=== PATIENT | female | born 1945 | race Caucasian/White ===

== ENCOUNTER → 2016-12-03 | Outpatient (CLI) | payer MEDICARE, OTHER ==
[~2016-12-03] MED LIST: CITRACAL PLUS1 TAB PO; COLACE 100100 MG/CAP PO; COZAAR 50MG50 MG/TAB PO; FLAGYL500 MG PO; HCTZ 25MG TAB25 MG PO; LEVAQUIN 750MG750 M1 PO; LEVSIN 0.10.125 MG/T PO; METAMUCIL3.4 GM/DOS PO; MIRALAX PA17 GM/Dose PO; MUCUS RELIEF400 M1 PO; MULTI VITAMINS1 TAB PO; NORCO 325 MG-7.1 TAB PO; PREVACID 30MG30 M1 PO; SINGULAIR 110 MG/TAB PO; TOPROL XL 50MG50 MG PO; ULTRAM 50MG TAB50 MG PO; VENTOLIN0.09 MG IH; ZOCOR 40MG40 MG PO; ZOLOFT 100MG100 MG PO; ZOSYN 3 GM-0.371 PD1 IV; ZYRTEC 10MG10 MG PO
== END ==
LOC: MC.RAD 10:59
DX: Z12.31 Encounter for screening mammogram for malignant neoplasm of breast (principal)

== ENCOUNTER 2017-09-23 12:45 | Outpatient (RCR) | payer MEDICARE, OTHER | END 2017-11-11 15:39 | disposition home or self-care (01) | LOC: WSPT 12:45 | DX: M75.81 Other shoulder lesions, right shoulder (principal) | CPT/HCPCS: G0283-GP; G8987-GP; G8988-GP; G8989-GP ==

== ENCOUNTER → 2018-04-07 | Outpatient (CLI) | payer MEDICARE, OTHER | LOC: MC.RAD 13:39 | DX: Z12.31 Encounter for screening mammogram for malignant neoplasm of breast (principal) ==

== ENCOUNTER → 2019-01-26 | Outpatient (CLI) | payer MEDICARE, OTHER | LOC: COL.RAD 10:29 | DX: M48.062 Spinal stenosis, lumbar region with neurogenic claudication (principal); M51.26 Other intervertebral disc displacement, lumbar region ==

== ENCOUNTER → 2019-02-12 | Outpatient (CLI) | payer MEDICARE, OTHER ==
[~2019-02-12] VITALS: Ht 167.6 cm; Wt 84.6 kg
[~2019-02-12] MED LIST changes: +00186-0370-20 IH; +CITRACAL + D CA1 TAB PO; -CITRACAL PLUS1 TAB PO; +LIPITOR20 MG PO; +LOPRESSOR 550 MG/TAB PO; +PRILOSEC 20MG20 MG PO; +THEO-24400 MG PO
[2019-02-12 07:45] VITALS: BP 162/91; PULSE 74
[2019-02-12 08:22] VITALS: BP 146/94; PULSE 64
--- NOTE | 2019-02-12 08:45 | NUR ---
Pt out to car per wheelchair, denies complaints at this time. Pt up and into car without difficulty.
== END ==
LOC: COL.RAD 07:00
DX: M48.062 Spinal stenosis, lumbar region with neurogenic claudication (principal); M54.16 Radiculopathy, lumbar region
CPT/HCPCS: J3301

== ENCOUNTER → 2019-03-01 | Outpatient (CLI) | payer MEDICARE, OTHER ==
[~2019-03-01] VITALS: Ht 167.6 cm; Wt 86.2 kg
[~2019-03-01] MED LIST changes: +TYLENOL 500MG500 MG PO; +XYZAL5 MG PO
[2019-03-01 07:04] VITALS: BP 139/72; PULSE 70
[2019-03-01 07:45] VITALS: BP 149/76; PULSE 60
[2019-03-01 07:49] VITALS: BP 149/76; PULSE 60
--- NOTE | 2019-03-01 08:05 | NUR ---
PT WAS TAKEN DOWN TO POV WHERE SHE GOT INTO THE PASSENGER SIDE. PAIN IS 3/10. DR WENT OVER THE DC INSTRUCTIONS WITH PT AND NURSE WENT OVER DC INSTRUCUCTIONS WITH PT AND ALL AROUND PATTERNMAKER.
== END ==
LOC: COL.RAD 06:48
DX: M48.062 Spinal stenosis, lumbar region with neurogenic claudication (principal)
CPT/HCPCS: J3301

== ENCOUNTER → 2019-07-20 | Outpatient (CLI) | payer MEDICARE, OTHER | LOC: MC.RAD 14:23 | DX: Z12.31 Encounter for screening mammogram for malignant neoplasm of breast (principal) ==

== ENCOUNTER 2019-08-14 21:43 | Emergency (ER) | payer MEDICARE, OTHER ==
[~2019-08-14] VITALS: Ht 167.6 cm; Wt 85.9 kg
[2019-08-14 22:06] VITALS: BP 181/91; TEMP 98.3
[2019-08-15 01:03] LABS: BASO # 0.1 (0.0-0.2); BASO % 0.4 % (0.0-2.0); EOS # 0.1 (0.0-0.7); EOS % 1.1 % (0-4.0); GRAN # 8.4 (1.4-6.5); GRAN % 70.9 % (42.2-75.2); HEMATOCRIT 38.8 % (37.0-47.0); HEMOGLOBIN 12.6 g/dl (12.5-16.0); LYMPH % 16.5 % (20.0-51.0); MEAN CELL VOLUME 90 fl (80.0-100.0); MEAN CORPUSCULAR HEMOGLOBIN 29 pg (27.0-31.0); MEAN CORPUSCULAR HGB CONC 33 g/dl (33.0-37.0); MEAN PLATELET VOLUME 8.9 fl (7.4-10.4); MONO # 1.3 (0.1-0.6); MONO % 10.6 % (1.7-9.3); PLATELET COUNT 254 K/mm3 (130-400); RED BLOOD COUNT 4.31 M/mm3 (4.10-5.30); REDCELL DISTRIBUTION WIDTH-CV 13.4 % (11.5-14.5)
[2019-08-15 01:13] LABS: ALANINE AMINOTRANSFERASE 18 U/L (9-52); ALBUMIN 4.4 gm/dL (3.5-5.0); ALKALINE PHOSPHATASE 84 U/L (50-136); ANION GAP 15 mmol/L (7-16); AST,SGOT 25 U/L (15-37); BILIRUBIN,TOTAL 0.2 mg/dL (0.0-1.0); BLOOD UREA NITROGEN 11 mg/dL (7-17); CALCIUM 10.1 mg/dL (8.4-10.2); CARBON DIOXIDE 27 mmol/L (22-30); CHLORIDE 97 mmol/L (98-107); CREATININE, serum 0.69 (0.52-1.25); GLUCOSE 113 mg/dL (74-106); POTASSIUM 3.5 mmol/L (3.4-5.0); SODIUM 139 mmol/L (137-145); TOTAL PROTEIN 7.5 gm/dL (6.4-8.2)
[2019-08-15 01:24] LABS: ERYTHROCYTE SEDIMENTATION RATE 38 mm/hr (0-30)
[2019-08-15 01:25] LABS: TROPONIN-I < 0.012 ng/mL (0.000-0.035)
[2019-08-15 01:56] VITALS: PULSE 81
== END 2019-08-15 01:56 | disposition home or self-care (01) ==
LOC: COL.ER 21:43
PROVIDERS: Emergency Medicine
DX: R51 Headache (principal); R07.89 Other chest pain; I10 Essential (primary) hypertension; J45.909 Unspecified asthma, uncomplicated; E78.5 Hyperlipidemia, unspecified; K21.9 Gastro-esophageal reflux disease without esophagitis; M54.9 Dorsalgia, unspecified; G89.29 Other chronic pain; Z79.891 Long term (current) use of opiate analgesic

== ENCOUNTER 2020-04-12 00:58 | Inpatient (IN) | payer MEDICARE, OTHER ==
[~2020-04-12] VITALS: Ht 167.6 cm; Wt 84.2 kg
[2020-04-12 02:00] LABS: BASO % 0.3 % (0.0-2.0); EOS # 0.1 (0.0-0.7); EOS % 0.4 % (0-4.0); GRAN % 74.3 % (42.2-75.2); HEMATOCRIT 38.1 % (37.0-47.0); HEMOGLOBIN 12.6 g/dl (12.5-16.0); LYMPH # 1.6 (1.2-3.4); LYMPH % 12.9 % (20.0-51.0); MEAN CELL VOLUME 88 fl (80.0-100.0); MEAN CORPUSCULAR HEMOGLOBIN 29 pg (27.0-31.0); MEAN CORPUSCULAR HGB CONC 33 g/dl (33.0-37.0); MEAN PLATELET VOLUME 9.2 fl (7.4-10.4); MONO # 1.4 (0.1-0.6); MONO % 11.6 % (1.7-9.3); PLATELET COUNT 248 K/mm3 (130-400); RED BLOOD COUNT 4.35 M/mm3 (4.10-5.30); REDCELL DISTRIBUTION WIDTH-CV 13.9 % (11.5-14.5)
[2020-04-12 02:08] LABS: PROTHROMBIN TIME 10.7 SECONDS (9.7-12.8)
[2020-04-12 02:10] LABS: PARTIAL THROMBOPLASTIN TIME 32.3 SECONDS (26.0-37.0)
[2020-04-12 02:11] LABS: ALBUMIN 4.4 gm/dL (3.5-5.0); BILIRUBIN,TOTAL 0.7 mg/dL (0.0-1.0); CALCIUM 9.8 mg/dL (8.4-10.2); CREATININE, serum 0.68 (0.52-1.25); MAGNESIUM 1.9 mg/dL (1.6-2.3); POTASSIUM 3.5 mmol/L (3.4-5.0); TOTAL PROTEIN 7.8 gm/dL (6.4-8.2)
[2020-04-12 02:28] LABS: TROPONIN-I 0.036 ng/mL (0.000-0.035)
[2020-04-12 02:40] LABS: TSH w REFLEX 2.03 uIU/mL (0.465-4.680)
[2020-04-12 03:39] LABS: THEOPHYLLINE 8.5 ug/mL (10.0-20.0)
[2020-04-12 06:17] VITALS: BP 122/60; PULSE 86; TEMP 97.5
[2020-04-12] MEDS ORDERED: TIAZAC180 MG PO (06:28)
[2020-04-12] MEDS ORDERED: ATROVENT I0.2 MG/1 M IH (06:37)
[2020-04-12 07:49] VITALS: BP 124/62; PULSE 81; TEMP 97.8
[2020-04-12 11:10] VITALS: BP 144/72; PULSE 80; TEMP 98
--- NOTE | 2020-04-12 11:50 | NUR ---
Received report at shift change, patient was resting in bed. Verbalized she was hungry, diet order has been placed and she has been provided with ice water. She states her symptoms have resolved. Was concerned about receiving her inhalers for her asthma. Did clarifiy with Dr. Torrez that patient can resume all home medications, this was relayed to hospitalists.
--- NOTE | 2020-04-12 13:31 | NUR ---
SW met with patient about DC. Plan is to return home in [facility] with DTR Rosalinda Mary Lou . Patient reports that use of [facility] and pcp as Dr. Light. Patient indicated that her DTR will transport. RX obtained for Rubi Gamble. Denies having any concerns, no dpoa, and educated on services. Will continue to follow for additonal care needs.
[2020-04-12 17:42] VITALS: BP 159/74; PULSE 97; TEMP 97.9
--- NOTE | 2020-04-12 18:55 | NUR ---
Patient is awake and alert eating supper, did have discussion regarding heart cath on Tuesday. Did notify of changed and improved troponin and was pleased. Call light and personal items are within reach.
[2020-04-12 20:54] VITALS: BP 146/76; PULSE 79; TEMP 98.1
[2020-04-13] VITALS (8 sets, daily range): BP systolic 129–160; BP diastolic 63–78; PULSE 68–103; TEMP 97.6–99.1
--- NOTE | 2020-04-13 06:06 | NUR ---
PATIENT SLEPT THROUGH THE NIGHT. X1 DOSE OF TYLENOL WAS GIVEN WITH HS PILLS FOR A HEADACHE. PATIENT STILL HAD A HEADACHE THIS MORNING SO X1 DOSE OF TRAMADOL WAS GIVEN. PATIENT IS IND IN HER ROOM AND GETS AROUND. PATIENT IS SCHEDULED FOR A HEART CATH ON TUESDAY. WILL CONTINUE TO MONITOR HER. WILL REPORT OFF TO DAY SHIFT
[2020-04-13 07:03] LABS: BASO % 0.5 % (0.0-2.0); EOS # 0.1 (0.0-0.7); EOS % 1.6 % (0-4.0); GRAN # 3.3 (1.4-6.5); GRAN % 58.4 % (42.2-75.2); HEMATOCRIT 37.5 % (37.0-47.0); HEMOGLOBIN 12.2 g/dl (12.5-16.0); LYMPH # 1.5 (1.2-3.4); LYMPH % 26.4 % (20.0-51.0); MEAN CELL VOLUME 90 fl (80.0-100.0); MEAN CORPUSCULAR HEMOGLOBIN 29 pg (27.0-31.0); MEAN CORPUSCULAR HGB CONC 33 g/dl (33.0-37.0); MEAN PLATELET VOLUME 9.3 fl (7.4-10.4); MONO # 0.7 (0.1-0.6); MONO % 12.9 % (1.7-9.3); PLATELET COUNT 255 K/mm3 (130-400); RED BLOOD COUNT 4.17 M/mm3 (4.10-5.30); REDCELL DISTRIBUTION WIDTH-CV 14.1 % (11.5-14.5)
[2020-04-13 07:29] LABS: CALCIUM 9.2 mg/dL (8.4-10.2); CHOLESTEROL RISK RATIO 5.3; CREATININE, serum 0.61 (0.52-1.25); MAGNESIUM 2.3 mg/dL (1.6-2.3); POTASSIUM 4.1 mmol/L (3.4-5.0)
[2020-04-13 07:42] LABS: TROPONIN-I 0.085 ng/mL (0.000-0.035)
[2020-04-13 14:49] LABS: HEMATOCRIT 40.2 % (37.0-47.0); HEMOGLOBIN 13.1 g/dl (12.5-16.0); MEAN CELL VOLUME 90 fl (80.0-100.0); MEAN CORPUSCULAR HEMOGLOBIN 29 pg (27.0-31.0); MEAN CORPUSCULAR HGB CONC 33 g/dl (33.0-37.0); MEAN PLATELET VOLUME 9.1 fl (7.4-10.4); PLATELET COUNT 277 K/mm3 (130-400); RED BLOOD COUNT 4.46 M/mm3 (4.10-5.30); REDCELL DISTRIBUTION WIDTH-CV 14.2 % (11.5-14.5)
[2020-04-13 15:02] LABS: CALCIUM 9.4 mg/dL (8.4-10.2); CREATININE, serum 0.73 (0.52-1.25); POTASSIUM 3.7 mmol/L (3.4-5.0)
[2020-04-13 15:06] LABS: INR 1.1 (0.8-3.0); PROTHROMBIN TIME 11.8 SECONDS (9.7-12.8)
[2020-04-13 15:08] LABS: PARTIAL THROMBOPLASTIN TIME 45.7 SECONDS (26.0-37.0)
--- NOTE | 2020-04-13 18:50 | NUR ---
Pt REPORT RECEIVED FROM CASH RN AT BEDSIDE. CALL LIGHT IS WITHIN REACH. WILL CONTINUE TO MONITOR.
--- NOTE | 2020-04-13 19:39 | NUR ---
PT HAS REPEATEDLY STATED "I WILL NOT HAVE THE CARDIAC CATH IF DR. ESPINO DOES NOT PERFORM IT!" WE HAVE DELAYED CONSENT UNTIL WE KNOW THAT DR. ESPINO WILL BE THE ONE PERFORMING THE CATH. SHE ALSO STATED THAT IF DR. ESPINO CANNOT DO IT, SHE WOULD LIKE TO LEAVE AND GO TO [place]. PT HAS HAD A GENERALLY UNEVENTFUL DAY, AND HAS BEEN PLEASANT. REPORT GIVEN TO SUSI FROST.
[2020-04-14] VITALS (241 sets, daily range): BP systolic 106–173; BP diastolic 63–100; PULSE 66–105; TEMP 97.8–98.4; O2SAT 92–100
--- NOTE | 2020-04-14 02:00 | NUR ---
Pt has had a quiet evening and has spent her time resting in bed at times watching tv. Pt educated about her NPO status and heart cath scheduled in the AM and Pt reports that she is not having her heart cath performed by anyone other than Dr Mckeon and if she needs to she will transfer to [place] for her procedure. This typewriter operator automatic explains that we will not know if Dr mckeon is going to perform the proceudre until the morning but if she chooses to not have the procedure done and wants to transfer to a hospital in [place] to have it done that is her right. Pt asks if she would need to go by ambulance and if her isnurance would pay for that. This typewriter operator automatic replies that Pt will need to talk to rn social services and/or the Dr in the morning for that answer. Pt states understanding of education. Pt has been compliant with medication regimen and cooperative with care. When Pt was attempting to fall asleep she had c/o headache and requested her PRN APAP and Ultram which were effective. Call light is within reach and at this time Pt is resting in bed with eyes closed and no s/s of distress noted. Will continue to monitor.
--- NOTE | 2020-04-14 02:27 | NUR ---
Pt uses call light to report that she is feeling like she is having pain located at her back, neck, and shoulders and upon assessing Pt she also points to her left lateral ribs. This news writer contacts Tele-RN who states that Pt is is normal sinus rhythym with no adverse changes or concerns at this time and the only issue showing up on telemetry is the bundle branch block that is a pre-existing condition and is aware of. VS assessed and charted under VS tab with no concerns noted. Will continue to monitor.
--- NOTE | 2020-04-14 06:27 | NUR ---
Pt resting in bed with eyes open and waiting to find out if Dr Mckeon is going to be available for her heart cath. Call light within reach and no s/s of distress noted. Will provide bedsdie report to dayshift nurse.
--- NOTE | 2020-04-14 07:16 | NUR ---
Pt continues to state that she is not going to have the heart catheterization if Dr. Morales does not perform the procedure. Pt is in bed an anxious regarding which doctor is here to do heart cath procedures. This RN assured her that she does not have to have to consent to any procedure done by any other physician and that her current consent that is signed is specific to Dr. Morales. Pt seemed to be content with that answer and relaxed quite a bit.
[2020-04-14 07:28] LABS: CALCIUM 9.5 mg/dL (8.4-10.2); CREATININE, serum 0.69 (0.52-1.25); POTASSIUM 3.8 mmol/L (3.4-5.0)
[2020-04-14] MEDS ORDERED: ZITHROMAX 250M250 MG PO (08:33)
--- NOTE | 2020-04-14 12:13 | NUR ---
First visit from the unarmed security officer. No needs right now.
--- NOTE | 2020-04-14 16:12 | NUR ---
SEE MERGE FOR ALL MEDICATION ADMIN TIMES AND INTRA AND POST SEDATION ASSESSMENT
--- NOTE | 2020-04-14 18:40 | NUR ---
[employer] CALLED TO REPORT ON PT. PT BECAME HYPOTENSIVE AND BRADYCARDIC, THEREFORE PT WILL BE SENT TO ICU.
--- NOTE | 2020-04-14 19:15 | NUR ---
Bedside report received from SUSI Skinner.
--- NOTE | 2020-04-14 20:00 | NUR ---
Patient resting in bed with daughter, Rosalinda, at bedside. Patient is a+o x4. No complaints of pain. BP has been hypertensive and will continue to watch closely. Assessment complete with no significant findings except for some pitting edema to the lower extremities. Right radial site is soft and mildly tender. Small amount of drainage around the site, but no active bleeding. Patient states she is hungry and sandwich box provided as well as water. Patient uses bedpan as well. Nothing further at this time. Will continue to monitor. Call light within reach.
[2020-04-15] VITALS (450 sets, daily range): BP systolic 119–136; BP diastolic 58–67; PULSE 72–101; TEMP 97.6–98.3; O2SAT 86–100
[2020-04-15 05:10] LABS: BASO % 0.2 % (0.0-2.0); EOS % 0.4 % (0-4.0); GRAN # 5.9 (1.4-6.5); GRAN % 72.6 % (42.2-75.2); HEMOGLOBIN 11.7 g/dl (12.5-16.0); LYMPH # 1.2 (1.2-3.4); LYMPH % 14.8 % (20.0-51.0); MEAN CELL VOLUME 89 fl (80.0-100.0); MEAN CORPUSCULAR HEMOGLOBIN 29 pg (27.0-31.0); MEAN CORPUSCULAR HGB CONC 33 g/dl (33.0-37.0); MEAN PLATELET VOLUME 9.5 fl (7.4-10.4); MONO # 0.9 (0.1-0.6); MONO % 11.5 % (1.7-9.3); PLATELET COUNT 235 K/mm3 (130-400); RED BLOOD COUNT 3.99 M/mm3 (4.10-5.30); REDCELL DISTRIBUTION WIDTH-CV 14.2 % (11.5-14.5)
[2020-04-15 05:16] LABS: HEMATOCRIT 35.5 % (37.0-47.0)
[2020-04-15 06:22] LABS: ALBUMIN 3.9 gm/dL (3.5-5.0); BILIRUBIN,TOTAL 0.6 mg/dL (0.0-1.0); CALCIUM 9.4 mg/dL (8.4-10.2); CREATININE, serum 0.65 (0.52-1.25); MAGNESIUM 2.1 mg/dL (1.6-2.3); POTASSIUM 3.9 mmol/L (3.4-5.0); TOTAL PROTEIN 7.1 gm/dL (6.4-8.2)
--- NOTE | 2020-04-15 07:12 | NUR ---
Bedside report given to SUSI To
--- NOTE | 2020-04-15 07:46 | NUR ---
Report received from Ivette GOLDMAN and care resumed.
--- NOTE | 2020-04-15 09:55 | NUR ---
Dr Morales in to see pt at this time.
[2020-04-15] MEDS ORDERED: PLAVIX 75MG TAB75 MG PO (11:45)
[2020-04-15] MEDS ORDERED: NITROSTAT0.4 MG/TAB SL (11:46)
[2020-04-15] MEDS ORDERED: LIPITOR 80MG80 MG PO (11:46)
[2020-04-15] MEDS ORDERED: ASPIRIN E.C. 8181 MG PO (11:46)
--- NOTE | 2020-04-15 14:49 | NUR ---
Pt given discharge instructions and taken out by wheelchair to private care for discharge at 1435.
== END 2020-04-15 14:35 | disposition home or self-care (01) | DRG 247 ==
LOC: COL.ER 00:58 → MEDICAL 04:13 → ICU 04-14 19:32
PROVIDERS: Emergency Medicine; Internal Medicine Interventional Cardiology; Nurse Practitioner Family; ADMIT Internal Medicine
PROC: 027034Z Dilation of Coronary Artery, One Artery with Drug-eluting Intraluminal Device, Percutaneous Approach (ICD-10-PCS; principal; 2020-04-14)
PROC: 4A023N7 Measurement of Cardiac Sampling and Pressure, Left Heart, Percutaneous Approach (ICD-10-PCS; 2020-04-14)
PROC: B2111ZZ Fluoroscopy of Multiple Coronary Arteries using Low Osmolar Contrast (ICD-10-PCS; 2020-04-14)
DX: I21.4 Non-ST elevation (NSTEMI) myocardial infarction (principal); I35.2 Nonrheumatic aortic (valve) stenosis with insufficiency; R00.0 Tachycardia, unspecified; J44.9 Chronic obstructive pulmonary disease, unspecified; D72.829 Elevated white blood cell count, unspecified; K21.9 Gastro-esophageal reflux disease without esophagitis; F41.9 Anxiety disorder, unspecified; F32.9 Major depressive disorder, single episode, unspecified; I10 Essential (primary) hypertension; E78.5 Hyperlipidemia, unspecified; G89.29 Other chronic pain; M54.9 Dorsalgia, unspecified; R53.81 Other malaise
CPT/HCPCS: 99223-AI; 99232-AI; 99239; C9600; J1644; J1650; J2250; J3010; J7030; Q9967

== ENCOUNTER 2020-04-16 01:17 | Emergency (ER) | payer MEDICARE, OTHER ==
[~2020-04-16] VITALS: Ht 167.6 cm; Wt 86.4 kg
[~2020-04-16 01:17] MED LIST changes: +ASPIRIN E.C. 8181 MG PO; +ATROVENT I0.2 MG/1 M IH; +LIPITOR 80MG80 MG PO; +NITROSTAT0.4 MG/TAB SL; +PLAVIX 75MG TAB75 MG PO; +TIAZAC180 MG PO; +ZITHROMAX 250M250 MG PO
[2020-04-16 02:19] LABS: BASO % 0.3 % (0.0-2.0); EOS % 0.4 % (0-4.0); GRAN # 7.2 (1.4-6.5); HEMOGLOBIN 12.1 g/dl (12.5-16.0); LYMPH # 1.4 (1.2-3.4); LYMPH % 13.9 % (20.0-51.0); MEAN CELL VOLUME 88 fl (80.0-100.0); MEAN CORPUSCULAR HEMOGLOBIN 29 pg (27.0-31.0); MEAN CORPUSCULAR HGB CONC 33 g/dl (33.0-37.0); MEAN PLATELET VOLUME 8.8 fl (7.4-10.4); MONO # 1.2 (0.1-0.6); MONO % 11.8 % (1.7-9.3); PLATELET COUNT 233 K/mm3 (130-400); RED BLOOD COUNT 4.18 M/mm3 (4.10-5.30)
[2020-04-16 02:20] LABS: HEMATOCRIT 36.6 % (37.0-47.0)
[2020-04-16 02:24] LABS: PROTHROMBIN TIME 10.7 SECONDS (9.7-12.8)
[2020-04-16 02:27] LABS: ALBUMIN 4.2 gm/dL (3.5-5.0); BILIRUBIN,TOTAL 0.5 mg/dL (0.0-1.0); CALCIUM 9.8 mg/dL (8.4-10.2); CREATININE, serum 0.71 (0.52-1.25); PARTIAL THROMBOPLASTIN TIME 33.1 SECONDS (26.0-37.0); POTASSIUM 3.6 mmol/L (3.4-5.0); TOTAL PROTEIN 7.5 gm/dL (6.4-8.2)
[2020-04-16 02:45] LABS: TROPONIN-I 0.202 ng/mL (0.000-0.035)
[2020-04-16 04:35] VITALS: BP 132/70; PULSE 80; TEMP 97
== END 2020-04-16 04:35 | disposition short-term general hospital (02) ==
LOC: COL.ER 01:17
PROVIDERS: Emergency Medicine
DX: I24.9 Acute ischemic heart disease, unspecified (principal); I25.10 Atherosclerotic heart disease of native coronary artery without angina pectoris; K21.9 Gastro-esophageal reflux disease without esophagitis; J45.909 Unspecified asthma, uncomplicated; I10 Essential (primary) hypertension; E78.5 Hyperlipidemia, unspecified; M54.9 Dorsalgia, unspecified; G89.29 Other chronic pain; D72.829 Elevated white blood cell count, unspecified; Z79.82 Long term (current) use of aspirin; Z79.891 Long term (current) use of opiate analgesic; Z95.5 Presence of coronary angioplasty implant and graft
CPT/HCPCS: J1644; J3010

== ENCOUNTER 2020-06-03 06:56 | Outpatient (CLI) | payer MEDICARE, OTHER ==
[2020-06-03] VITALS (14 sets, daily range): BP systolic 113–138; BP diastolic 62–78; PULSE 66–89; TEMP 98.5
[~2020-06-03] VITALS: Ht 167.7 cm; Wt 85.3 kg
[2020-06-03] MEDS ORDERED: PROTONIX 40MG T40 MG PO (07:47)
[2020-06-03] MEDS ORDERED: ZYRTEC 10MG10 MG PO (07:48)
[2020-06-03] MEDS ORDERED: ASPIRIN E.C. 8181 MG PO (07:49)
[2020-06-03] MEDS ORDERED: LIPITOR 80MG80 MG PO (07:50)
[2020-06-03] MEDS ORDERED: PLAVIX 75MG TAB75 MG PO (07:51)
[2020-06-03 07:57] LABS: HEMOGLOBIN 11.6 g/dl (12.5-16.0); MEAN CELL VOLUME 89 fl (80.0-100.0); MEAN CORPUSCULAR HEMOGLOBIN 28 pg (27.0-31.0); MEAN CORPUSCULAR HGB CONC 32 g/dl (33.0-37.0); MEAN PLATELET VOLUME 10.6 fl (7.4-10.4); PLATELET COUNT 188 K/mm3 (130-400); RED BLOOD COUNT 4.11 M/mm3 (4.10-5.30); REDCELL DISTRIBUTION WIDTH-CV 13.8 % (11.5-14.5)
[2020-06-03 07:58] LABS: INR 0.9 (0.8-3.0); PROTHROMBIN TIME 10.4 SECONDS (9.7-12.8)
[2020-06-03 07:59] LABS: HEMATOCRIT 36.7 % (37.0-47.0)
--- NOTE | 2020-06-03 09:03 | NUR ---
Report from Jazz GOLDMAN. Pt resting in bed, denies pain and needs at this time. VSS.
[2020-06-03] MEDS ORDERED: IMDUR 30MG30 MG/TAB PO (10:25)
[2020-06-03 11:08] LABS: BILIRUBIN,TOTAL 0.3 mg/dL (0.0-1.0); CALCIUM 9.3 mg/dL (8.4-10.2); CREATININE, serum 0.76 (0.52-1.25); POTASSIUM 3.7 mmol/L (3.4-5.0); TOTAL PROTEIN 7.2 gm/dL (6.4-8.2)
--- NOTE | 2020-06-03 11:40 | NUR ---
INT discontinued intact. Discharge instructions given. Transferred to private car by sherman
== END 2020-06-03 11:40 | disposition home or self-care (01) ==
LOC: EUO 06:56 → COL.RAD 07:00 → EUO 11:40
PROVIDERS: Internal Medicine Cardiovascular Disease
DX: I35.0 Nonrheumatic aortic (valve) stenosis (principal); I45.10 Unspecified right bundle-branch block; Z20.828 Contact with and (suspected) exposure to other viral communicable diseases
CPT/HCPCS: J2704

== ENCOUNTER 2020-06-05 17:42 | Emergency (ER) | payer MEDICARE, OTHER ==
[~2020-06-05] VITALS: Ht 167.6 cm; Wt 85.5 kg
[~2020-06-05 17:42] MED LIST changes: +IMDUR 30MG30 MG/TAB PO; +PROTONIX 40MG T40 MG PO
[2020-06-05 17:48] VITALS: TEMP 97.8
[2020-06-05 19:00] LABS: BASO % 0.6 % (0.0-2.0); EOS # 0.1 (0.0-0.7); GRAN # 4.4 (1.4-6.5); GRAN % 65.1 % (42.2-75.2); HEMATOCRIT 36.8 % (37.0-47.0); HEMOGLOBIN 11.6 g/dl (12.5-16.0); LYMPH # 1.4 (1.2-3.4); LYMPH % 20.4 % (20.0-51.0); MEAN CELL VOLUME 90 fl (80.0-100.0); MEAN CORPUSCULAR HEMOGLOBIN 28 pg (27.0-31.0); MEAN CORPUSCULAR HGB CONC 32 g/dl (33.0-37.0); MEAN PLATELET VOLUME 9.6 fl (7.4-10.4); MONO # 0.9 (0.1-0.6); MONO % 12.6 % (1.7-9.3); PLATELET COUNT 248 K/mm3 (130-400); RED BLOOD COUNT 4.09 M/mm3 (4.10-5.30); REDCELL DISTRIBUTION WIDTH-CV 13.9 % (11.5-14.5)
[2020-06-05 19:01] LABS: PROTHROMBIN TIME 10.8 SECONDS (9.7-12.8)
[2020-06-05 19:08] LABS: ALANINE AMINOTRANSFERASE 19 U/L (4-34); ALBUMIN 4.5 gm/dL (3.5-5.0); ALKALINE PHOSPHATASE 109 U/L (50-136); ANION GAP 10 mmol/L (7-16); AST,SGOT 40 U/L (15-37); BILIRUBIN,TOTAL 0.5 mg/dL (0.0-1.0); BLOOD UREA NITROGEN 15 mg/dL (7-17); CALCIUM 9.8 mg/dL (8.4-10.2); CARBON DIOXIDE 25 mmol/L (22-30); CHLORIDE 103 mmol/L (98-107); GLUCOSE 93 mg/dL (74-106); LIPASE 256 U/L (23-300); POTASSIUM 3.9 mmol/L (3.4-5.0); SODIUM 137 mmol/L (137-145)
[2020-06-05 19:31] LABS: TROPONIN-I < 0.012 ng/mL (0.000-0.035)
[2020-06-05 21:28] VITALS: BP 139/78; PULSE 69
== END 2020-06-05 21:28 | disposition home or self-care (01) ==
LOC: COL.ER 17:42
PROVIDERS: Emergency Medicine
DX: R06.02 Shortness of breath (principal); R42 Dizziness and giddiness; I25.10 Atherosclerotic heart disease of native coronary artery without angina pectoris; J45.909 Unspecified asthma, uncomplicated; Z79.82 Long term (current) use of aspirin
CPT/HCPCS: J7030

== ENCOUNTER → 2020-07-21 | Outpatient (CLI) | payer MEDICARE, OTHER | LOC: MC.RAD 09:45 | DX: Z12.31 Encounter for screening mammogram for malignant neoplasm of breast (principal) ==

== ENCOUNTER 2020-08-04 13:04 | Outpatient (RCR) | payer MEDICARE, OTHER | END 2020-08-05 | disposition still patient (30) | LOC: COL.CR | DX: Z48.812 Encounter for surgical aftercare following surgery on the circulatory system (principal); Z95.5 Presence of coronary angioplasty implant and graft ==

== ENCOUNTER 2020-08-08 13:13 | Outpatient (RCR) | payer MEDICARE, OTHER ==
[2020-08-10] MEDS ORDERED: OMNICEF 300MG300 MG PO (12:10)
[2020-08-10] MEDS ORDERED: NORCO2.5 PO (12:11)
== END 2020-08-25 16:27 | disposition home or self-care (01) ==
LOC: COL.CR 13:13
DX: Z48.812 Encounter for surgical aftercare following surgery on the circulatory system (principal); Z95.5 Presence of coronary angioplasty implant and graft

== ENCOUNTER 2020-08-10 08:48 | Emergency (ER) | payer MEDICARE, OTHER ==
[~2020-08-10] VITALS: Ht 167.6 cm; Wt 85.0 kg
[2020-08-10 09:41] LABS: COLLECTION METHOD CLEAN CATCH
[2020-08-10 09:51] LABS: PH 8 (5-8); SQUAMOUS EPITHELIAL 0-2 /hpf; URINE APPEARANCE Hazy; URINE BACTERIA Rare /hpf; URINE BILIRUBIN Negative (NEGATIVE); URINE BLOOD Negative (NEGATIVE); URINE COLOR Straw; URINE GLUCOSE Negative (NEGATIVE); URINE KETONE Negative (NEGATIVE); URINE LEUKOCYTE ESTERASE 3+ (NEGATIVE); URINE NITRATE Negative (NEGATIVE); URINE PROTEIN(semi-quant) Negative (NEGATIVE); URINE UROBILINOGEN Negative (NEGATIVE)
[2020-08-10 09:58] LABS: BASO % 0.3 % (0.0-2.0); EOS % 0.2 % (0-4.0); GRAN # 4.7 (1.4-6.5); GRAN % 71.1 % (42.2-75.2); HEMOGLOBIN 11.8 g/dl (12.5-16.0); LYMPH # 1.1 (1.2-3.4); LYMPH % 16.3 % (20.0-51.0); MEAN CELL VOLUME 84 fl (80.0-100.0); MEAN CORPUSCULAR HEMOGLOBIN 28 pg (27.0-31.0); MEAN CORPUSCULAR HGB CONC 33 g/dl (33.0-37.0); MEAN PLATELET VOLUME 9.6 fl (7.4-10.4); MONO # 0.8 (0.1-0.6); MONO % 11.6 % (1.7-9.3); PLATELET COUNT 256 K/mm3 (130-400); RED BLOOD COUNT 4.29 M/mm3 (4.10-5.30); REDCELL DISTRIBUTION WIDTH-CV 14.6 % (11.5-14.5)
[2020-08-10 10:00] LABS: HEMATOCRIT 35.9 % (37.0-47.0)
[2020-08-10 10:24] LABS: ALBUMIN 4.6 gm/dL (3.5-5.0); BILIRUBIN,TOTAL 0.5 mg/dL (0.0-1.0); C-REACTIVE PROTEIN 0.7 mg/dL (0.0-0.9); CALCIUM 9.9 mg/dL (8.4-10.2); CREATININE, serum 0.64 (0.52-1.25); POTASSIUM 3.6 mmol/L (3.4-5.0); TOTAL PROTEIN 7.8 gm/dL (6.4-8.2)
[2020-08-10] MEDS ORDERED: OMNICEF 300MG300 MG PO (12:10)
[2020-08-10] MEDS ORDERED: NORCO2.5 PO (12:11)
[2020-08-10 12:45] VITALS: BP 120/57; PULSE 78; TEMP 98.3
== END 2020-08-10 13:07 | disposition home or self-care (01) ==
LOC: COL.ER 08:48
PROVIDERS: Family Medicine
DX: N39.0 Urinary tract infection, site not specified (principal); E86.0 Dehydration; I10 Essential (primary) hypertension; J44.9 Chronic obstructive pulmonary disease, unspecified; I25.10 Atherosclerotic heart disease of native coronary artery without angina pectoris; Z88.6 Allergy status to analgesic agent; Z79.51 Long term (current) use of inhaled steroids; Z79.82 Long term (current) use of aspirin; Z79.02 Long term (current) use of antithrombotics/antiplatelets
CPT/HCPCS: J0696; J1170; J2405; J3010; J7120; Q9967

== ENCOUNTER 2020-09-09 12:28 | Outpatient (CLI) | payer MEDICARE, OTHER ==
[~2020-09-09] VITALS: Ht 167.6 cm; Wt 83.7 kg
[2020-09-09] VITALS (9 sets, daily range): BP systolic 104–142; BP diastolic 56–77; PULSE 57–90; TEMP 98.2
[~2020-09-09 12:28] MED LIST changes: +NORCO2.5 PO; +OMNICEF 300MG300 MG PO; -TIAZAC180 MG PO; +TIAZAC360 MG PO
[2020-09-09] MEDS ORDERED: IPRATROPIUM BROM3 M1 IH (13:41)
[2020-09-09] MEDS ORDERED: 00186-0370-20 IH (13:42)
[2020-09-09] MEDS ORDERED: LIPITOR 40MG TA40 MG PO (13:43)
--- NOTE | 2020-09-09 14:24 | NUR ---
SEE MERGE FOR ALL MEDICATION ADMINISTRATION TIMES, INTRA AND POST SEDATION ASSESS,ENTS
--- NOTE | 2020-09-09 17:39 | NUR ---
DC instructions reviewed with pt, who expresses understanding. Pt is able to ambulate with steady gait. Tolerating PO well. INT DC'd with catheter intact. Bandaid remains clean and intact. Pt is assisted out to son's car by wheelchair with personal belongings.
== END 2020-09-09 17:41 | disposition home or self-care (01) ==
LOC: COL.CAR 12:28
DX: M48.54XA Collapsed vertebra, not elsewhere classified, thoracic region, initial encounter for fracture (principal); Z90.89 Acquired absence of other organs; Z90.710 Acquired absence of both cervix and uterus; Z88.2 Allergy status to sulfonamides; Z88.5 Allergy status to narcotic agent; Z88.8 Allergy status to other drugs, medicaments and biological substances; Z79.891 Long term (current) use of opiate analgesic; Z79.51 Long term (current) use of inhaled steroids; Z79.82 Long term (current) use of aspirin; Z79.02 Long term (current) use of antithrombotics/antiplatelets; Z11.59 Encounter for screening for other viral diseases
CPT/HCPCS: J1200; J2250; J3010; J7120

== ENCOUNTER 2021-02-07 19:30 | Emergency (ER) | payer MEDICARE, OTHER ==
[~2021-02-07] VITALS: Ht 167.6 cm; Wt 81.8 kg
[~2021-02-07 19:30] MED LIST changes: +IPRATROPIUM BROM3 M1 IH; +LIPITOR 40MG TA40 MG PO; +TIAZAC240 MG PO; -TIAZAC360 MG PO
[2021-02-07 19:34] VITALS: TEMP 98.1
[2021-02-07 20:31] LABS: COLLECTION METHOD CLEAN CATCH
[2021-02-07 20:37] LABS: PH 8 (5-8); SQUAMOUS EPITHELIAL 0-2 /hpf; URINE APPEARANCE Clear; URINE BACTERIA None Seen /hpf; URINE BILIRUBIN Negative (NEGATIVE); URINE BLOOD Negative (NEGATIVE); URINE COLOR Straw; URINE GLUCOSE Negative (NEGATIVE); URINE KETONE Negative (NEGATIVE); URINE LEUKOCYTE ESTERASE Negative (NEGATIVE); URINE NITRATE Negative (NEGATIVE); URINE PROTEIN(semi-quant) Negative (NEGATIVE); URINE RBC 0-2 /hpf; URINE UROBILINOGEN Negative (NEGATIVE)
[2021-02-07 20:50] LABS: BASO % 0.4 % (0.0-2.0); EOS # 0.1 (0.0-0.7); EOS % 0.9 % (0-4.0); GRAN % 72.5 % (42.2-75.2); HEMOGLOBIN 10.3 g/dl (12.5-16.0); LYMPH # 1.5 (1.2-3.4); LYMPH % 15.1 % (20.0-51.0); MEAN CELL VOLUME 87 fl (80.0-100.0); MEAN CORPUSCULAR HEMOGLOBIN 27 pg (27.0-31.0); MEAN CORPUSCULAR HGB CONC 31 g/dl (33.0-37.0); MEAN PLATELET VOLUME 9.8 fl (7.4-10.4); MONO % 10.7 % (1.7-9.3); PLATELET COUNT 264 K/mm3 (130-400); RED BLOOD COUNT 3.78 M/mm3 (4.10-5.30); REDCELL DISTRIBUTION WIDTH-CV 14.8 % (11.5-14.5)
[2021-02-07 20:51] LABS: HEMATOCRIT 32.8 % (37.0-47.0)
[2021-02-07 20:57] LABS: INR 0.9 (0.8-3.0); PROTHROMBIN TIME 10.5 SECONDS (9.7-12.8)
[2021-02-07 21:04] LABS: ALANINE AMINOTRANSFERASE 20 U/L (4-34); ALBUMIN 4.2 gm/dL (3.5-5.0); ALKALINE PHOSPHATASE 104 U/L (50-136); ANION GAP 10 mmol/L (7-16); AST,SGOT 25 U/L (15-37); BILIRUBIN,TOTAL < 0.1 mg/dL (0.0-1.0); BLOOD UREA NITROGEN 18 mg/dL (7-17); C-REACTIVE PROTEIN 2.5 mg/dL (0.0-0.9); CALCIUM 9.3 mg/dL (8.4-10.2); CARBON DIOXIDE 24 mmol/L (22-30); CHLORIDE 103 mmol/L (98-107); CREATININE, serum 0.71 (0.52-1.25); GLUCOSE 94 mg/dL (74-106); SODIUM 137 mmol/L (137-145); TOTAL PROTEIN 7.9 gm/dL (6.4-8.2)
[2021-02-07 21:15] LABS: TROPONIN-I < 0.012 ng/mL (0.000-0.035)
[2021-02-07 22:35] VITALS: BP 129/80; PULSE 82
== END 2021-02-07 22:48 | disposition home or self-care (01) ==
LOC: COL.ER 19:30
PROVIDERS: Emergency Medicine
DX: R20.0 Anesthesia of skin (principal); R20.2 Paresthesia of skin; R60.0 Localized edema; J20.8 Acute bronchitis due to other specified organisms; Z88.6 Allergy status to analgesic agent; Z88.2 Allergy status to sulfonamides; Z79.82 Long term (current) use of aspirin; Z79.02 Long term (current) use of antithrombotics/antiplatelets; Z79.51 Long term (current) use of inhaled steroids

== ENCOUNTER 2021-05-13 13:58 | Outpatient (CLI) | payer MEDICARE, OTHER ==
[~2021-05-13] VITALS: Ht 167.6 cm; Wt 82.3 kg
[2021-05-13 14:57] VITALS: BP 110/52; PULSE 84; TEMP 98.5
[2021-05-13] MEDS ORDERED: ANORO IH (17:51)
[2021-05-13] MEDS ORDERED: ZEBETA 5MG5 MG PO (17:52)
[2021-05-13] MEDS ORDERED: AMOXICILLIN 50500 MG PO (17:52)
== END 2021-05-13 18:03 | disposition home or self-care (01) ==
LOC: EUO 13:58
DX: M81.0 Age-related osteoporosis without current pathological fracture (principal)
CPT/HCPCS: J3489

== ENCOUNTER 2021-05-18 08:07 | Outpatient (CLI) | payer MEDICARE, OTHER ==
[~2021-05-18] VITALS: Ht 167.7 cm; Wt 81.7 kg
[2021-05-18] VITALS (7 sets, daily range): BP systolic 118–132; BP diastolic 56–72; PULSE 70–81; TEMP 98.8
[~2021-05-18 08:07] MED LIST changes: +AMOXICILLIN 50500 MG PO; +ANORO IH; +ZEBETA 5MG5 MG PO
[2021-05-18 09:51] LABS: HEMOGLOBIN 11.6 g/dl (12.5-16.0); MEAN CELL VOLUME 88 fl (80.0-100.0); MEAN CORPUSCULAR HEMOGLOBIN 28 pg (27.0-31.0); MEAN CORPUSCULAR HGB CONC 31 g/dl (33.0-37.0); MEAN PLATELET VOLUME 8.9 fl (7.4-10.4); PLATELET COUNT 264 K/mm3 (130-400); RED BLOOD COUNT 4.21 M/mm3 (4.10-5.30); REDCELL DISTRIBUTION WIDTH-CV 16.4 % (11.5-14.5)
[2021-05-18] MEDS ORDERED: CITRACAL + D CA1 TAB PO (09:53)
[2021-05-18] MEDS ORDERED: ZETIA 10MG TAB10 MG PO (09:54)
[2021-05-18] MEDS ORDERED: THEO-24400 MG PO (09:57)
[2021-05-18] MEDS ORDERED: DIFLUCAN 100MG100 MG PO (09:58)
[2021-05-18 10:00] LABS: HEMATOCRIT 36.9 % (37.0-47.0)
[2021-05-18 10:01] LABS: PROTHROMBIN TIME 11.4 SECONDS (9.7-12.8)
[2021-05-18 10:04] LABS: BILIRUBIN,TOTAL 0.3 mg/dL (0.0-1.0); CALCIUM 9.3 mg/dL (8.4-10.2); CREATININE, serum 0.64 (0.52-1.25); MAGNESIUM 2.2 mg/dL (1.6-2.3); POTASSIUM 3.6 mmol/L (3.4-5.0); TOTAL PROTEIN 7.5 gm/dL (6.4-8.2)
--- NOTE | 2021-05-18 12:15 | NUR ---
DC instructions reviewed with pt and daughter, Rosalinda. Both express understanding. Pt steady on feet to toilet in room. Has eaten jello cup and drank water without issue. INT DC'd with catheter intact. She is assisted out to daughter's car by wheelchair with belongings.
== END 2021-05-18 12:16 | disposition home or self-care (01) ==
LOC: COL.RAD 08:07
PROVIDERS: Internal Medicine Adult Congenital Heart Disease
DX: I08.3 Combined rheumatic disorders of mitral, aortic and tricuspid valves (principal); I70.0 Atherosclerosis of aorta
CPT/HCPCS: J2704

== ENCOUNTER 2021-06-17 00:44 | Emergency (ER) | payer MEDICARE, OTHER ==
[~2021-06-17] VITALS: Ht 167.6 cm; Wt 81.8 kg
[~2021-06-17 00:44] MED LIST changes: +DIFLUCAN 100MG100 MG PO; +ZETIA 10MG TAB10 MG PO
[2021-06-17 00:53] VITALS: TEMP 98.4
[2021-06-17 01:22] LABS: BASO % 0.5 % (0.0-2.0); EOS # 0.2 (0.0-0.7); GRAN # 4.7 (1.4-6.5); GRAN % 61.7 % (42.2-75.2); HEMATOCRIT 39.3 % (37.0-47.0); HEMOGLOBIN 12.1 g/dl (12.5-16.0); LYMPH # 1.6 (1.2-3.4); LYMPH % 21.3 % (20.0-51.0); MEAN CELL VOLUME 86 fl (80.0-100.0); MEAN CORPUSCULAR HEMOGLOBIN 27 pg (27.0-31.0); MEAN CORPUSCULAR HGB CONC 31 g/dl (33.0-37.0); MEAN PLATELET VOLUME 9.2 fl (7.4-10.4); MONO # 1.1 (0.1-0.6); MONO % 14.2 % (1.7-9.3); PLATELET COUNT 264 K/mm3 (130-400); RED BLOOD COUNT 4.57 M/mm3 (4.10-5.30); REDCELL DISTRIBUTION WIDTH-CV 15.5 % (11.5-14.5)
[2021-06-17 01:46] LABS: ALANINE AMINOTRANSFERASE 20 U/L (4-34); ALBUMIN 4.3 gm/dL (3.5-5.0); ALKALINE PHOSPHATASE 96 U/L (50-136); ANION GAP 11 mmol/L (7-16); AST,SGOT 36 U/L (15-37); BILIRUBIN,TOTAL 0.3 mg/dL (0.0-1.0); BLOOD UREA NITROGEN 16 mg/dL (7-17); CALCIUM 9.5 mg/dL (8.4-10.2); CARBON DIOXIDE 24 mmol/L (22-30); CHLORIDE 106 mmol/L (98-107); CREATININE, serum 0.72 (0.52-1.25); GLUCOSE 113 mg/dL (74-106); POTASSIUM 3.9 mmol/L (3.4-5.0); SODIUM 141 mmol/L (137-145); TOTAL PROTEIN 7.8 gm/dL (6.4-8.2)
[2021-06-17 02:00] LABS: TROPONIN-I < 0.012 ng/mL (0.000-0.035)
[2021-06-17] MEDS ORDERED: ANORO IH (05:12)
[2021-06-17 07:34] VITALS: BP 117/68; PULSE 88
== END 2021-06-17 07:42 | disposition home or self-care (01) ==
LOC: COL.ER 00:44
PROVIDERS: Personal Emergency Response Attendant
DX: R07.9 Chest pain, unspecified (principal); F41.9 Anxiety disorder, unspecified; F32.9 Major depressive disorder, single episode, unspecified; I25.10 Atherosclerotic heart disease of native coronary artery without angina pectoris; I10 Essential (primary) hypertension; E78.5 Hyperlipidemia, unspecified; Z98.61 Coronary angioplasty status; Z79.82 Long term (current) use of aspirin; Z79.899 Other long term (current) drug therapy

== ENCOUNTER 2021-08-13 17:05 | Emergency (ER) | payer MEDICARE, OTHER ==
[~2021-08-13] VITALS: Ht 167.6 cm; Wt 80.0 kg
[2021-08-13 17:48] LABS: BASO # 0.1 K/mm3 (0.0-0.2); BASO % 0.6 % (0.0-2.0); EOS # 0.1 K/mm3 (0.0-0.7); EOS % 1.3 % (0-4.0); GRAN # 6.2 K/mm3 (1.4-6.5); GRAN % 66.8 % (42.2-75.2); LYMPH # 1.6 K/mm3 (1.2-3.4); LYMPH % 16.9 % (20.0-51.0); MEAN CELL VOLUME 84 fl (80.0-100.0); MEAN CORPUSCULAR HGB CONC 32 g/dl (33.0-37.0); MEAN PLATELET VOLUME 9.5 fl (7.4-10.4); MONO # 1.3 K/mm3 (0.1-0.6); MONO % 14.1 % (1.7-9.3); PLATELET COUNT 286 K/mm3 (130-400); RED BLOOD COUNT 3.64 M/mm3 (4.10-5.30); REDCELL DISTRIBUTION WIDTH-CV 15.3 % (11.5-14.5)
[2021-08-13 17:49] LABS: HEMATOCRIT 30.7 % (37.0-47.0); HEMOGLOBIN 9.8 g/dl (12.5-16.0); MEAN CORPUSCULAR HEMOGLOBIN 27 pg (27.0-31.0)
[2021-08-13 18:10] LABS: ALBUMIN 3.1 gm/dL (3.4-4.8); BILIRUBIN,TOTAL 0.3 mg/dL (0.2-1.2); CALCIUM 9.5 mg/dL (8.4-10.2); CREATININE, serum 0.77 mg/dL (0.57-1.11); POTASSIUM 4.3 mmol/L (3.5-4.5)
[2021-08-13 19:04] VITALS: BP 140/68; PULSE 76; TEMP 97.9
== END 2021-08-13 19:08 | disposition home or self-care (01) ==
LOC: COL.ER 17:05
PROVIDERS: Nurse Practitioner
DX: T82.837A Hemorrhage due to cardiac prosthetic devices, implants and grafts, initial encounter (principal); I10 Essential (primary) hypertension; I25.10 Atherosclerotic heart disease of native coronary artery without angina pectoris; Z79.02 Long term (current) use of antithrombotics/antiplatelets; Z79.82 Long term (current) use of aspirin; Z79.899 Other long term (current) drug therapy

== ENCOUNTER 2021-11-02 15:30 | Outpatient (RCR) | payer MEDICARE, OTHER | END 2021-11-06 | disposition home or self-care (01) | LOC: COL.CR | DX: Z48.812 Encounter for surgical aftercare following surgery on the circulatory system (principal); Z95.2 Presence of prosthetic heart valve ==

== ENCOUNTER 2021-11-30 14:58 | Outpatient (RCR) | payer MEDICARE, OTHER | END 2021-12-02 14:42 | disposition home or self-care (01) | LOC: COL.CR 14:58 | DX: Z48.812 Encounter for surgical aftercare following surgery on the circulatory system (principal); Z95.2 Presence of prosthetic heart valve ==

== ENCOUNTER → 2021-12-15 | Outpatient (CLI) | payer MEDICARE, OTHER | LOC: MC.RAD 10:45 | DX: Z12.31 Encounter for screening mammogram for malignant neoplasm of breast (principal) ==

== ENCOUNTER 2022-06-01 14:54 | Outpatient (CLI) | payer MEDICARE, OTHER ==
[~2022-06-01] VITALS: Ht 167.6 cm; Wt 78.0 kg
[2022-06-01 15:38] VITALS: BP 138/98; PULSE 68; TEMP 98.6
[2022-06-01] MEDS ORDERED: CRESTOR 10MG10 MG PO (16:48)
[2022-06-01] MEDS ORDERED: COZAAR 25MG25 MG/TAB PO (16:49)
== END 2022-06-01 16:39 | disposition home or self-care (01) ==
LOC: EUO 14:54
DX: M81.0 Age-related osteoporosis without current pathological fracture (principal)
CPT/HCPCS: J3489

== ENCOUNTER 2024-05-07 15:22 | Emergency (ER) | payer MEDICARE, OTHER ==
[~2024-05-07] VITALS: Ht 167.6 cm; Wt 79.5 kg
[~2024-05-07 15:22] MED LIST changes: +COZAAR 25MG25 MG/TAB PO; +CRESTOR 10MG10 MG PO; +NORCO 325 MG-51 TAB PO
[2024-05-07] MEDS ORDERED: oxyCODONE/Acetaminophen 5-325 MG TAB PO ONE (16:45)
[2024-05-07 16:56] VITALS: BP 164/82; TEMP 98.2
[2024-05-07 19:21] LABS: COLLECTION METHOD CLEAN CATCH
[2024-05-07 19:43] LABS: URINE COLOR Yellow (YELLOW)
[2024-05-07 19:44] LABS: PH 7.5 (5.0-8.5); URINE APPEARANCE CLEAR (CLEAR/HAZY); URINE BLOOD Negative (NEGATIVE); URINE GLUCOSE Negative (NEGATIVE); URINE KETONE Negative (NEGATIVE); URINE NITRATE Negative (NEGATIVE); URINE PROTEIN(semi-quant) Negative (NEGATIVE); URINE UROBILINOGEN 0.2 E.U/dL (0.2-1.0)
[2024-05-07] MEDS ORDERED: Lidocaine 4% Topical Patch TP ONE (21:00)
[2024-05-07] MEDS ORDERED: LIDODERM 5% PATC1 EA TP (21:03)
[2024-05-07 21:28] VITALS: PULSE 70
== END 2024-05-07 21:30 | disposition home or self-care (01) ==
LOC: COL.ER 15:22
PROVIDERS: Nurse Practitioner
DX: M54.50 Low back pain, unspecified (principal); Z98.1 Arthrodesis status

== ENCOUNTER 2024-06-01 23:24 | Emergency (ER) | payer MEDICARE ==
[~2024-06-01] VITALS: Ht 170.2 cm; Wt 76.4 kg
[~2024-06-01 23:24] MED LIST changes: +ALL DAY ALLERGY10 M3 PO; +BROVANA15 MCG/2 M IH; +CELEBREX 1100 MG/CAP PO; +CYMBALTA 30MG30 MG PO; +DIFLUCAN150 MG PO; +DULCOLAX STOOL100 MG PO; +LIDODERM 5% PATC1 EA TP; +MYCOGEN CR 15GM TP; +OMEGA-3 1000 MG1 CAP PO; +PREVIDENT5000PLUS DT; +PROCTOZONE-HC2.5% RC; +RECLAST5 MG/100 M IV
[2024-06-01 23:33] VITALS: BP 169/69; TEMP 97.4
[2024-06-02 00:33] LABS: HEMOGLOBIN 11.9 g/dl (12.5-16.0); MEAN CELL VOLUME 91 fl (80.0-100.0); MEAN CORPUSCULAR HEMOGLOBIN 30 pg (27-31); MEAN CORPUSCULAR HGB CONC 33 g/dl (33.0-37.0); MEAN PLATELET VOLUME 9.7 fl (7.4-10.4); PLATELET COUNT 241 K/mm3 (130-400); REDCELL DISTRIBUTION WIDTH-CV 13.2 % (11.5-14.5)
[2024-06-02 00:35] LABS: HEMATOCRIT 36.4 % (37.0-47.0)
[2024-06-02 01:59] LABS: BAND 7 % (0-10); LYMPHOCYTE 17 % (20.0-51.0); NEUTROPHILS 64 % (42.0-75.2); PLATELET ESTIMATE NORMAL (NORMAL)
[2024-06-02 02:30] VITALS: PULSE 82
== END 2024-06-02 03:47 | disposition home or self-care (01) ==
LOC: COL.ER 23:24
PROVIDERS: Personal Emergency Response Attendant
DX: K64.4 Residual hemorrhoidal skin tags (principal)